=== PATIENT | female | born 1990 | race Hispanic/Latino ===

== ENCOUNTER 2016-08-04 16:17 | Emergency (ER) | payer OTHER ==
[2016-08-04 16:24] VITALS: TEMP 98.2
[2016-08-04] MEDS ORDERED: Dexamethasone 4 mg/1 ml ONE (16:38)
[2016-08-04] MEDS: Sodium Chloride 0.9% 1,000 ML IV STA (16:52)
--- NOTE | 2016-08-04 16:57 | ED PDOC ---
HPI: CCC, URI, Sore Throat Time Seen by Provider: 08/04/16 16:26 Chief Complaint (Nursing): ENT Problem Chief Complaint (Provider): Sore Throat History Per: Patient History/Exam Limitations: no limitations Onset/Duration Of Symptoms: Days (x2) Current Symptoms Are (Timing): Still Present Additional Complaint(s): Natalie Marshall is a 26 year old female that presents to the ED with a chief complaint of a sore throat that is worse on the left side of her throat that she has been experiencing for the past two days. Patient states that she was seen at the [facility] and was told to come to the ED for further evaluation. Past Medical History Reviewed: Historical Data, Nursing Documentation, Vital Signs Vital Signs: Last Vital Signs Temp 98.2 F 08/04/16 16:22 Pulse 89 08/04/16 16:22 Resp 16 08/04/16 16:22 BP 124/67 08/04/16 16:22 Pulse Ox 100 08/04/16 17:01 - Family History Family History: States: Unknown Family Hx - Home Medications Home Medications: Ambulatory Orders Medication Instructions Recorded Doxycycline Hyclate [Doryx] 100 mg PO BID #20 cap 08/04/16 - Allergies Allergies/Adverse Reactions: Allergies Allergy/AdvReac Type Severity Reaction Status Date / Time cefuroxime [From Ceftin] Allergy RASH Verified 08/04/16 16:22 Review of Systems ENT: Positive for: Throat Pain (sore throat) Physical Exam - Reviewed Nursing Documentation Reviewed: Yes Vital Signs Reviewed: Yes - Physical Exam Appears: Positive for: Non-toxic, No Acute Distress Head Exam: Positive for: ATRAUMATIC, NORMOCEPHALIC Skin: Positive for: Normal Color, Warm, Dry Eye Exam: Positive for: Normal appearance, EOMI, PERRL ENT: Positive for: Other (left side of throat is slightly more swollen than the right). Negative for: Normal ENT Inspection (uvula is slightly more to the left ) Neurologic/Psych: Positive for: Alert, Oriented - Laboratory Results Result Diagrams: 08/04/16 16:39 08/04/16 16:35 - ECG O2 Sat by Pulse Oximetry: 100 (RA) Pulse Ox Interpretation: Normal Medical Decision Making Medical Decision Making: Impression: Possible Strep Throat Plan: * CBC * CMP * Urine * Rapid Strep * Decadron 10 mg IV * Sodium Chloride 500 mLs at 1000 mLs/hr * Reevaluation Pt reports feeling better on re-evaluation. (-) abscess on CT Scribe Attestation: Documented by Liza Mckeon, acting as a scribe for Susannah Katz PA-C. Provider Scribe Attestation: All medical record entries made by the Scribe were at my direction and personally dictated by me. I have reviewed the chart and agree that the record accurately reflects my personal performance of the history, physical exam, medical decision making, and the department course for this patient. I have also personally directed, reviewed, and agree with the discharge instructions and disposition. Disposition - Clinical Impression Clinical Impression: Tonsillitis - Patient ED Disposition Is Patient to be Admitted: No Counseled Patient/Family Regarding: Diagnosis, Need For Followup, Rx Given - Disposition Referrals: [facility] [Outside] Disposition: Routine/Home Disposition Time: 19:37 Condition: GOOD Prescriptions: Doxycycline Hyclate [Doryx] 100 mg PO BID #20 cap Instructions: Tonsillitis (ED)
[2016-08-04 17:14] LABS: BASO % 0.4 % (0.0-2.0); EOS # 0.2 K/uL (0.0-0.7); EOS % 2.1 % (0.0-4.0); HEMATOCRIT 38.2 % (34.0-47.0); LYMPH # 2.4 K/uL (1.0-4.3); LYMPH % 22.7 % (20.0-40.0); MEAN CELL VOLUME 88.5 fl (81.0-99.0); MEAN CORPUSCULAR HEMOGLOBIN 29.4 pg (27.0-31.0); MEAN CORPUSCULAR HGB CONC 33.3 g/dL (33.0-37.0); MEAN PLATELET VOLUME 9.6 fl (7.2-11.7); MONO # 0.7 K/uL (0.0-0.8); NEUT # 7.1 K/uL (1.8-7.0); NEUT % 67.8 % (50.0-75.0); NRBC % 0.1 % (0.0-0.0); RED CELL DISTRIBUTION WIDTH 12.4 % (11.5-14.5); WHITE BLOOD COUNT 10.4 K/uL (4.8-10.8)
[2016-08-04 17:32] LABS: ALB/GLOB RATIO 1.6 (1.0-2.1); ALKALINE PHOSPHATASE 48 U/L (38-126); ALT/SGPT 23 U/L (9-52); AST/SGOT 27 U/L (14-36); BILIRUBIN,TOTAL 0.5 mg/dl (0.2-1.3); BLOOD UREA NITROGEN 14 mg/dl (7-17); CALCIUM 9.1 mg/dL (8.4-10.2); CARBON DIOXIDE 25 mmol/L (22-30); CHLORIDE 101 mmol/L (98-107); GFR AFRICAN-AMERICAN > 60; GLUCOSE,RANDOM 85 mg/dL (65-105); POTASSIUM 3.7 MMOL/L (3.6-5.0); SODIUM 136 mmol/l (132-148); TOTAL PROTEIN 7.6 G/DL (6.3-8.2)
[2016-08-04] MEDS ORDERED: Iohexol 300 100 ML IJ ONE (18:25)
[2016-08-04] MEDS ORDERED: Sodium Chloride 0.9% 50 ML IV ONE (18:26)
[2016-08-04 21:00] VITALS: BP 128/78; PULSE 70; RESP 18; O2SAT 99
--- NOTE | 2016-08-05 17:01 | CT ---
PROCEDURE: CT scan of the neck dated 08/04/2016. HISTORY: Left-sided sore throat COMPARISON: No prior TECHNIQUE: CT scan of the neck performed following intravenous injection of approximately 80 cc Omnipaque 300 contrast material. . Coronal and sagittal reformats generated. Radiation dose: DLP 416.43 2 mGy-cm This CT exam was performed using one or more of the following dose reduction techniques: Automated exposure control, adjustment of the mA and/or kV according to patient size, and/or use of iterative reconstruction technique. FINDINGS: The current study reveals mild asymmetric enlargement of the left palatine tonsil a of suggesting mild tonsillitis. There is no evidence peritonsillar abscess seen. [place] tonsils encroach medially and mildly reduce the khai pharyngeal airway. Airway is otherwise patent throughout. The vallecula mid radha appears symmetric. Free margin of the epiglottis unremarkable. Aryepiglottic folds and pyriform sinuses are also symmetric. The true vocal cords are symmetric. Multiple relatively small bilateral cervical lymph nodes are present within the jugulodigastric, submandibular, submental and posterior cervical spaces of. The largest left jugulodigastric lymph node measures approximately 14.9 mm. This is likely reactive. Parotid and submandibular glands are unremarkable. Thyroid gland is relatively homogeneous appearance without mass collection or calcification. The common carotid arteries, carotid bifurcations and internal carotid arteries are widely patent and well opacified with no evidence of occlusion or significant stenosis. Vertebral arteries are also patent throughout on left-sided which may be only medially more dominant than the right along its distal border. Note is made of vague filling defects within the jugular veins bilaterally felt to represent under opacified blood rather than thrombosis. Impression: Mildly enlarged on left palatine tonsil likely representing tonsillitis. No evidence of peritonsillar abscess. Borderline enlarged left jugulodigastric lymph node.
== END 2016-08-04 21:00 | disposition home or self-care (01) ==
LOC: H.ER 16:17
DX: J03.90 Acute tonsillitis, unspecified (principal)